=== PATIENT | female | born 1975 | race Caucasian/White ===

== ENCOUNTER 2022-12-26 06:14 | Outpatient (CLI) | payer OTHER ==
[~2022-12-26] VITALS: Ht 172.7 cm; Wt 109.4 kg
[~2022-12-26 06:14] MED LIST: CRS350T PO; DCS100C PO; FRS325T PO; HYDR-2858 PO; HYDR-3720 PO; IBP600T1; IBP600T1 PO; IRON; MULT-383 PO; OXYC-12 PO; PREN1TAB39 PO
[2022-12-26] MEDS ORDERED: MELO15TA39 PO (15:10)
== END 2022-12-26 15:18 | disposition home or self-care (01) ==
LOC: PREOP 06:14
PROVIDERS: ATTEND Surgery
DX: Z01.818 Encounter for other preprocedural examination (principal)

== ENCOUNTER 2023-01-08 07:47 | Day surgery (SDC) | payer OTHER ==
[~2023-01-08] VITALS: Ht 172.7 cm; Wt 109.4 kg
[~2023-01-08 07:47] MED LIST changes: +MELO15TA39 PO
[2023-01-08] MEDS ORDERED: LACTATED RINGERS 1,000 ML 1,000 ML IV STA (07:51)
[2023-01-08 07:59] VITALS: BP 143/90
--- NOTE | 2023-01-08 08:51 | Progress Note-Post Operative ---
Post-Operative Progess Note Surgeon (s)/Shower Screen Installer (s) Surgeon JOSE ARMANDO CHERRY DO Shower Screen Installer: n/a Pre-Operative Diagnosis SCREENING/FH COLON CA/COLONOSCOPY Post-Operative Diagnosis internal hemorrhoids Procedure & Operative Findings Date of Procedure 01/08/23 Procedure Performed/Findings colonoscopy Anesthesia Type per APPLIANCE LINE ASSEMBLER Estimated Blood Loss Estimated blood loss (mL): none Specimens/Packing Specimens Removed none JOSE ARMANDO CHERRY DO Jan 08, 2023 08:51
--- NOTE | 2023-01-08 08:52 | Discharge Inst-Simple/Standard ---
Discharge Inst-Standard Patient Instructions/Follow Up Plan of Care/Instructions/FU: follow up 5 years with aba, any issues before then be seen at that time Activity as Tolerated: Yes Discharge Diet: Regular Diet JOSE ARMANDO CHERRY DO Jan 08, 2023 08:52
[2023-01-08 08:55] VITALS: BP 120/70
[2023-01-08 09:00] VITALS: BP 119/71
[2023-01-08 09:25] VITALS: BP 119/71
--- NOTE | 2023-01-08 13:24 | Anesthesia-General Post-Op ---
MAC Patient Condition Mental Status/LOC: Same as Preop Cardiovascular: Satisfactory Nausea/Vomiting: Absent Respiratory: Satisfactory Pain: Controlled Complications: Absent Post Op Complications Complications None Follow Up Care/Instructions Patient Instructions None needed. Anesthesiology Discharge Order Discharge Order Patient is doing well, no complaints, stable vital signs, no apparent adverse anesthesia problems. No complications reported per nursing. IRWIN RECINOS CRNA Jan 08, 2023 13:24
--- NOTE | 2023-01-08 14:43 | OPERATIVE REPORT ---
DATE OF SERVICE: 01/08/2023 PREOPERATIVE DIAGNOSIS: Family history of colon cancer. POSTOPERATIVE DIAGNOSIS: Normal colon. PROCEDURE: Colonoscopy. SURGEON: Jose Armando Clayton DO ANESTHESIA: Per FOOD SERVICE COUNTER CLERK. ESTIMATED BLOOD LOSS: None. COMPLICATIONS: None. INDICATIONS: The patient is a 47-year-old female, needing screening colonoscopy. She understands risks and benefits of procedure and wished to proceed. Consent was signed in chart. DESCRIPTION OF PROCEDURE: The patient was taken to endoscopy suite, placed in left lateral recumbent position. Timeout was performed. Digital rectal exam was performed noting some internal hemorrhoids. There were no palpable polyps, masses or ulcerations. Scope was inserted in the rectum, advanced all the way to the cecum with minimal difficulty. Prep was adequate. Scope was slowly retracted back. No polyps, masses or ulcerations in the cecum, ascending, transverse, descending and sigmoid colon. Once in the rectum, scope was retroflexed noting some internal hemorrhoids. No other pathology. Scope was returned to its normal position, slowly withdrawn until completely removed. The patient tolerated the procedure well without any complications, taken to recovery room in stable condition. RECOMMENDATIONS: The patient will need repeat colonoscopy in 5 years due to family history of colon cancer. Any issues before that, be seen at that time. Job ID: [id number] DocumentID: [id number] Dictated Date: 01/08/2023 08:51:25 Brazing Machine Operator Automatic Date: 01/08/2023 14:41:00 Dictated By: JOSE ARMANDO CLAYTON DO
== END 2023-01-08 09:25 | disposition home or self-care (01) ==
LOC: ENDO 07:47
PROVIDERS: ATTEND Surgery
DX: Z12.11 Encounter for screening for malignant neoplasm of colon (principal); K64.8 Other hemorrhoids; Z80.0 Family history of malignant neoplasm of digestive organs; F17.210 Nicotine dependence, cigarettes, uncomplicated; E66.9 Obesity, unspecified; Z68.36 Body mass index [BMI] 36.0-36.9, adult